=== PATIENT | female | born 1985 | race Hispanic/Latino ===

== ENCOUNTER 2017-10-03 20:08 | Emergency (ER) | payer BC ==
[~2017-10-03] VITALS: Ht 167.6 cm; Wt 86.5 kg
[~2017-10-03 20:08] MED LIST: PRENATAL TABLE1 EAC3 PO
[2017-10-03 20:35] LABS: ADD MIUA? YES; BILIRUBIN NEGATIVE; BLOOD MODERATE; COLOR COLORLESS ((YELLOW)); GLUCOSE (STRIP) NEGATIVE; KETONES NEGATIVE; LEUKOCYTES NEGATIVE; NITRITE NEGATIVE; PROTEIN (STRIP) 30; SPECIFIC GRAVITY 1.004 (1.000-1.030); UROBILINOGEN 0.2 MG/DL (0.2-1.0)
[2017-10-03 20:58] LABS: HEMATOCRIT 39.8 % (36.0-46.0); MCH 28.7 PG (29.0-34.0); MCHC 33.9 G/DL (30.0-36.0); MCV 84.7 FL (83-99); MEAN PLAT.VOLUME 9.6 uM^3 (9.5-12.4); PLATELET COUNT 277 K/uL (156-360); RBC DIS.WIDTH-CV 11.9 % (11.8-14.6); RBC DIS.WIDTH-SD 36.5 % (39-53); WHITE BLOOD COUNT 13.8 K/uL (4.1-10.2)
[2017-10-03 21:06] LABS: BACTERIA NONE SEEN /HPF; EPITHELIAL CELLS RARE /HPF; MUCUS NONE SEEN /LPF; RED BLOOD CELLS 15-20 /HPF (0-5); UCUL ADDED? NO; WHITE BLOOD CELLS 0-5 /HPF (0-5)
[2017-10-03 21:08] LABS: CHLORIDE 104 mEq/L (99-109); POTASSIUM 3.6 mEq/L (3.7-5.4); SODIUM 137 mEq/L (136-147)
[2017-10-03 21:11] LABS: GLUCOSE 102 mg/dL (70-99)
[2017-10-03 21:12] LABS: ANION GAP 8 MEQ/L (2-14); TOTAL BILIRUBIN 0.4 mg/dL (0.0-1.0)
[2017-10-03 21:14] LABS: ALKALINE PHOSPHATASE 64 IU/L (3-129); GFR ESTIMATE (CALCULATED) 51 mL/min/
[2017-10-03 21:15] LABS: UREA NITROGEN (BUN) 20 mg/dL (9-23)
[2017-10-03 21:23] LABS: QUANTITATIVE HCG < 4.0 MIU/ML
[2017-10-03] MEDS ORDERED: TRAMADOL HCL50 MG PO (23:13)
[2017-10-03] MEDS ORDERED: KEFLEX500 MG PO (23:13)
[2017-10-03 23:25] VITALS: BP 137/83
== END 2017-10-03 23:28 | disposition home or self-care (01) ==
LOC: EME 20:08 → RME 20:08
DX: R10.30 Lower abdominal pain, unspecified (principal); R31.9 Hematuria, unspecified
CPT/HCPCS: 74176; 80053; 81003; 84702; 85027; 99281; 99284; J1885